=== PATIENT | male | born 1990 | race Caucasian/White ===

== ENCOUNTER → 2018-12-02 | Outpatient (CLI) | payer OTHER ==
--- NOTE | 2018-12-20 14:50 | SLEEP ---
[address] [id number] SLEEP STUDY REPORT Name: TIMOOLIVA RAMÍREZ [id number] Admission: 12/02/18 Attend Phys: Olya Arrington DO Discharge: Date of : 89 Report #: [id number] THIS REPORT FOR: //name// CC: Olya Arrington DO This study has been reviewed in its entirety by a board certified sleep specialist DATE OF SERVICE: 12/13/2018 HOME SLEEP STUDY ATTENDING PHYSICIAN: Olya Arrington DO. The patient is 28 years old who weighs 212 pounds with a BMI of 30.4. The patient's Rich[place] score was 11. The patient underwent home sleep study performed by [facility]. Total recording time was 620 minutes. During the night study, the patient had 162 obstructive apneas, no mixed or central apneas and 130 hypopneas. The patient's apnea hypopnea index was 28 per hour with a supine index of 28 per hour as well. Nocturnal oximetry study revealed an average oxygen saturation of 93% with a lowest of 72%. 49.9 minutes were spent in oxygen saturation less than 90%. Mean heart rate was 50 beats per minute with a maximum of 87 beats per minute. IMPRESSION: 1. Moderate sleep apnea-hypopnea syndrome at an AHI of 28 per hour. 2. Nocturnal hypoxia secondary to obstructive sleep apnea. RECOMMENDATIONS: 1. The patient is clinically symptomatic and would benefit from in-lab CPAP titration study. 2. Once optimal CPAP pressure is achieved, then follow up in 4-6 weeks to assess compliance with CPAP and to document clinical improvement. 3. Weight loss is advised. 4. Avoid STRAIGHT EDGER depressants. 5. Cautioned regarding driving until symptoms of sleep apnea resolved with the use of CPAP. <ELECTRONICALLY SIGNED> By: Wes Knight MD 12/20/18 1450 1200 [id number] Knight MD /nt
== END ==
LOC: M.SLEEPLAB 11-30 16:00
DX: G47.39 Other sleep apnea (principal); R53.83 Other fatigue